=== PATIENT | male | born 1980 | race African-American/Black ===

== ENCOUNTER 2018-01-21 14:45 | Emergency (ER) | payer MEDICAID ==
[~2018-01-21] VITALS: Ht 182.9 cm; Wt 89.0 kg
[2018-01-21 14:51] VITALS: BP 169/136
== END 2018-01-21 18:43 | disposition left against medical advice (07) ==
LOC: ER 14:45
DX: Z53.21 Procedure and treatment not carried out due to patient leaving prior to being seen by health care provider (principal)
CPT/HCPCS: 93005

== ENCOUNTER 2023-09-09 10:55 | Emergency (ER) | payer MEDICAID ==
[~2023-09-09] VITALS: Ht 190.5 cm; Wt 118.0 kg
[2023-09-09 11:25] VITALS: O2SAT 99
[2023-09-09] MEDS ORDERED: WARF10TA44 MT (11:41)
[2023-09-09] MEDS ORDERED: WARF1TAB85 MT (11:41)
[2023-09-09 12:23] LABS: INR 1.2; PROTHROMBIN TIME 12.9 sec (9.6-11.0)
[2023-09-09 12:44] VITALS: BP 118/70; PULSE 68; RESP 18; TEMP 98.2
== END 2023-09-09 12:51 | disposition home or self-care (01) ==
LOC: ER 10:55
DX: Z76.0 Encounter for issue of repeat prescription (principal)
CPT/HCPCS: 36415; 99283

== ENCOUNTER 2024-01-08 04:27 | Emergency (ER) | payer MEDICAID ==
[~2024-01-08] VITALS: Ht 190.5 cm; Wt 114.0 kg
[~2024-01-08 04:27] MED LIST: WARF10TA44 MT; WARF1TAB85 MT
[2024-01-08 04:29] VITALS: TEMP 98.5; O2SAT 99
[2024-01-08] MEDS ORDERED: BICT1TAB PO (05:09)
[2024-01-08] MEDS ORDERED: DOXY100C5 MT (05:14)
[2024-01-08 05:27] LABS: BASOPHILS % 0.4 % (0.0-2.0); EOSINOPHILS % 0.5 % (0.0-5.0); HEMATOCRIT. 43.9 % (42.0-52.0); LYMPHOCYTES % 24.2 % (20.0-50.0); MEAN CORPUSCULAR HEMOGLOBIN 30.7 pg (28.0-32.0); MEAN CORPUSCULAR HGB CONC 34.2 g/dL (31.0-37.0); MEAN CORPUSCULAR VOLUME 89.8 fL (80.0-94.0); MEAN PLATELET VOLUME 8.7 fl (7.4-10.4); MONOCYTES % 5.2 % (2.0-8.0); NEUTROPHILS % 69.7 % (40.0-76.0); PLATELET 257 x1000/uL (130-400); RED BLOOD CELL COUNT 4.89 mill/uL (4.7-6.1); WHITE BLOOD COUNT 9.1 x1000/uL (4.5-11.0)
[2024-01-08] MEDS: CEFTRIAXONE SODIUM 500MG VIAL IM ONE (05:27)
[2024-01-08] MEDS: LIDOCAINE HCL/PF 1% 10 MG/ML 5ML VIAL INFIL ONE (05:27)
[2024-01-08 05:32] LABS: CHLORIDE 110 mEq/L (98-107); POTASSIUM 3.5 mEq/L (3.5-5.1); SODIUM 140 mEq/L (136-145)
[2024-01-08 05:33] LABS: CALCIUM 8.9 mg/dL (8.7-10.4); CARBON DIOXIDE 25 mEq/L (21-32)
[2024-01-08 05:38] LABS: CREATININE 1.2 mg/dL (0.6-1.3); GLUCOSE 89 mg/dL (70-105); UREA NITROGEN BLOOD 10 mg/dL (9-23)
[2024-01-08 05:40] LABS: ALANINE AMINOTRANSFERASE 24 IU/L (10-49); ALBUMIN 4.2 g/dL (3.2-4.8); ASPARTATE AMINOTRANSFERASE 20 IU/L (<34)
[2024-01-08 05:41] LABS: BILIRUBIN TOTAL 0.6 mg/dL (0.1-1.0); PROTEIN TOTAL 6.9 g/dL (6.0-8.3)
[2024-01-08 05:55] VITALS: BP 120/72; PULSE 82; RESP 16; O2SAT 98
[2024-01-10 13:06] LABS: CHLAMYDIA TRACHOMATIS NAA Negative (Negative); NEISSERIA GONORRHOEAE NAA Negative (Negative)
== END 2024-01-08 06:00 | disposition home or self-care (01) ==
LOC: ER 04:27
DX: A74.9 Chlamydial infection, unspecified (principal); Z95.2 Presence of prosthetic heart valve; Z79.899 Other long term (current) drug therapy; Z98.890 Other specified postprocedural states
CPT/HCPCS: 99283; 86592; 87491; 87591; 80053; 85025; 36415; 96372; J0696; J3490